=== PATIENT | female | born 1960 | race Caucasian/White ===

== ENCOUNTER 2024-02-16 09:56 | Outpatient (CLI) | payer MEDICAID ==
[~2024-02-16 09:56] MED LIST: VENTOLIN HFA 90 MCG INH
== END 2024-02-16 23:59 | disposition home or self-care (01) ==
LOC: CARD DIAG 09:56
PROVIDERS: ATTEND Internal Medicine
DX: I08.8 Other rheumatic multiple valve diseases (principal); M79.89 Other specified soft tissue disorders
CPT/HCPCS: 93306

== ENCOUNTER 2024-06-13 03:38 | Inpatient (IN) | payer MEDICAID ==
[~2024-06-13] VITALS: Ht 154.9 cm; Wt 54.5 kg
[2024-06-13] MEDS: normal saline 1000ML IV soln IVB ONE (04:15)
[2024-06-13] MEDS: insulin regular, human 10 units/0.1 ml syringe IV ONE (04:16)
[2024-06-13 04:26] LABS: BASOPHILS # (AUTO) 0.1 X10'3 (0-0.2); BASOPHILS % (AUTO) 0.6 % (0-1); EOSINOPHILS % (AUTO) 0.3 % (0-6); HEMATOCRIT 30.9 % (35.0-45.0); HEMOGLOBIN 10.4 g/dl (12.0-16.0); LYMPHOCYTES # (AUTO) 0.9 X10'3 (1.1-4.8); LYMPHOCYTES % (AUTO) 9.1 % (21-51); MEAN CORPUSCULAR HEMOGLOBIN 36.5 PG (27.0-31.0); MEAN CORPUSCULAR HGB CONC 33.6 g/dL (33.0-36.5); MEAN CORPUSCULAR VOLUME 108.5 FL (78-98); MEAN PLATELET VOLUME 8.9 FL (7.4-10.4); MONOCYTES # (AUTO) 1.2 X10'3 (0-0.9); MONOCYTES % (AUTO) 12.4 % (2-12); NEUTROPHILS # (AUTO) 7.3 X10'3 (1.8-7.7); NEUTROPHILS % (AUTO) 77.6 % (42-75); PLATELET COUNT 229 X10'3 (140-440); RED BLOOD COUNT 2.85 X10'6 (4.20-5.60); RED CELL DISTRIBUTION WIDTH 18.9 % (11.5-14.5); WHITE BLOOD COUNT 9.5 X10'3 (4.5-11.0)
[2024-06-13 04:36] LABS: ALANINE AMINOTRANSFERASE 57 U/L (12-78); ALBUMIN 3.4 G/DL (3.4-5.0); ALBUMIN/GLOBULIN RATIO 1.2 (1.1-1.5); ALKALINE PHOSPHATASE 281 IU/L (46-116); ANION GAP 13 (8-16); ASPARTATE AMINO TRANSFERASE 60 U/L (10-37); BLOOD UREA NITROGEN 25 MG/DL (7-18); BUN/CREATININE RATIO 15.1 (10.0-20.0); CALCIUM 8.2 MG/DL (8.5-10.1); CHLORIDE 98 MMOL/L (99-107); CREATININE 1.66 MG/DL (0.40-0.90); SODIUM 130 MMOL/L (135-145); TOTAL CARBON DIOXIDE 19.2 MMOL/L (24-32); TOTAL PROTEIN 6.2 G/DL (6.4-8.2); eCRCL 27 ML/MIN; eGFR 31 ML/MIN
[2024-06-13 04:42] LABS: GLUCOSE 578 MG/DL (70-104); POTASSIUM 2.9 MMOL/L (3.5-5.1)
[2024-06-13] MEDS ORDERED: potassium Cl 20 mEq SR tablet PO SCH (04:50)
[2024-06-13 04:59] LABS: ANISOCYTOSIS 2+; PLATELET ESTIMATE NORMAL; POLYCHROMASIA FEW; STOMATOCYTES 2+
[2024-06-13] MEDS: potassium Cl 20 mEq SR tablet PO ONE (05:09)
[2024-06-13] MEDS: magnesium sulf-water 2g/50mL 50 ML IV ONE (05:09)
[2024-06-13 05:13] LABS: ABG BASE EXCESS -9.1 mmol/L (-2.0-3.0); ABG HCO3 15.8 mmol/L (21.0-28.0); ABG OXYGEN SATURATION 96.2 % (94.0-98.0); ABG PH (T) 7.337 (7.350-7.450); ABG PO2 (T) 86.7 mmHg (83.0-108.0); ALLEN'S TEST Modified; FCOHb 0.6 % (0.5-1.5); FHHb 3.8 % (0.0-5.0); FMetHb 0.1 % (0.0-1.5); FO2Hb 95.5 % (94.0-98.0); PATIENT TEMPERATURE 36.4; TOTAL HEMOGLOBIN 10.6 G/dl (12.0-16.0)
[2024-06-13] MEDS ORDERED: ondansetron/PF 4mg/2ml inj IV PRN (05:40)
[2024-06-13] MEDS ORDERED: magnesium sulf-water 2g/50mL 50 ML IV PRN (05:40)
[2024-06-13] MEDS ORDERED: potassium Cl 20 mEq SR tablet PO PRN (05:40)
[2024-06-13] MEDS ORDERED: mag hydrox/Alum hydrox/simeth 30ml oral suspension PO PRN (05:40)
[2024-06-13] MEDS ORDERED: magnesium hydroxide 30ml (MOM) UD suspension PO PRN (05:40)
[2024-06-13] MEDS ORDERED: magnesium sulf-water 4G/100mL 100 ML IV PRN (05:40)
[2024-06-13] MEDS ORDERED: acetaminophen 325mg tablet PO PRN (05:40)
[2024-06-13] MEDS ORDERED: potassium Cl 40MEQ/1/2NS 520ml 520 ML IV PRN (05:40)
[2024-06-13 06:03] LABS: BILIRUBIN,URINE NEGATIVE (Neg); CLARITY,URINE SLIGHTLY CLOUDY (Clear); COLOR,URINE YELLOW (Yellow); GLUCOSE, URINE >=1000 mg/dl (Neg); KETONES,URINE NEGATIVE (Neg); LEUKOCYTE ESTERASE ,URINE NEGATIVE (Neg); OCCULT BLOOD,URINE SMALL (Neg); PROTEIN,URINE NEGATIVE (Neg); UROBILINOGEN,URINE 0.2 E.U/dL (0.2-1.0)
[2024-06-13 06:11] LABS: NITRITES, URINE NEGATIVE (Neg); UA COLLECTION TYPE CLN CATCH MIDSTREAM
[2024-06-13] MEDS: normal saline 1000ml 1,000 ML IV SCH (06:11)
[2024-06-13 06:12] LABS: SQUAMOUS EPITHELIAL CELL,UR MANY /LPF (FEW)
[2024-06-13 06:13] LABS: BACTERIA,URINE FEW /HPF (Neg); TRANSITIONAL EPI CELLS,URINE FEW /HPF; WBC,URINE 0-4 /HPF (0-4)
[2024-06-13] MEDS ORDERED: LORazepam 2 mg/ml vial IV PRN (06:20)
[2024-06-13 06:33] LABS: URINE AMPHETAMINE SCREEN POSITIVE (Neg); URINE BARBITUATE SCREEN NEGATIVE (Neg); URINE BENZODIAZEPINES SCREEN NEGATIVE (Neg); URINE CANNABINOID SCREEN POSITIVE (Neg); URINE COCAINE SCREEN NEGATIVE (Neg); URINE METHADONE SCREEN NEGATIVE (Neg); URINE OPIATE SCREEN NEGATIVE (Neg); URINE PHENCYCLIDINE SCREEN NEGATIVE (Neg)
[2024-06-13] MEDS: thiamine 100mg/ml 2ml inj. IV SCH (07:40)
[2024-06-13] MEDS: docusate sod 100mg capsule PO SCH (07:40)
[2024-06-13] MEDS: folic acid 1mg/0.2ml inj IV SCH (07:40)
[2024-06-13] MEDS: multivitamins, therapeutics tablet PO SCH (07:41)
[2024-06-13] MEDS: heparin, porcine 5000 units/ml vial SQ SCH (07:42)
[2024-06-13 07:54] LABS: MAGNESIUM 2.5 MG/DL (1.5-2.4); THYROID STIMULATING HORMONE 1.85 ulU/ml (0.34-4.50)
[2024-06-13 08:02] LABS: ETHANOL < 10 MG/DL (<10)
[2024-06-13 08:03] LABS: POTASSIUM 2.9 MMOL/L (3.5-5.1)
[2024-06-13] MEDS: K and/or MAG REPLACEMENT MC SCH (08:09)
[2024-06-13] MEDS: potassium Cl 20 mEq SR tablet PO PRN (08:09)
[2024-06-13 08:25] LABS: HEMOGLOBIN A1C 11.2 % (4.5-6.2)
[2024-06-13] MEDS ORDERED: glucagon, human recombinant 1mg kit SUBCUT PRN (08:55)
[2024-06-13] MEDS ORDERED: dextrose 50%-water 50ml dispensing syringe IV PRN (08:55)
[2024-06-13] MEDS ORDERED: DEXTROSE 15 GM of carb/4 tabs (each vial/BOTTLE has 4 tablets) PO PRN ×2 (08:55)
[2024-06-13] MEDS: INSULIN LISPRO 100 UNIT/ML INSULN.PEN MULTI-DOSE SQ SCH ×2 (09:00→12:27)
[2024-06-13] MEDS: Potassium Cl inj 20 MEQ in normal saline 1000ml 990 ML IV SCH (09:27)
[2024-06-13 11:28] LABS: ALBUMIN 2.5 G/DL (3.4-5.0); ANION GAP 13 (8-16); BLOOD UREA NITROGEN 20 MG/DL (7-18); BUN/CREATININE RATIO 21.3 (10.0-20.0); CALCIUM 7.6 MG/DL (8.5-10.1); CHLORIDE 109 MMOL/L (99-107); CREATININE 0.94 MG/DL (0.40-0.90); GLUCOSE 195 MG/DL (70-104); POTASSIUM 3.7 MMOL/L (3.5-5.1); SODIUM 137 MMOL/L (135-145); TOTAL CARBON DIOXIDE 15.2 MMOL/L (24-32); eCRCL 47 ML/MIN; eGFR 61 ML/MIN
[2024-06-13 14:15] VITALS: BP 111/53; PULSE 66; RESP 14; TEMP 98; O2SAT 98
[2024-06-13 16:00] VITALS: RESP 18
[2024-06-13 16:34] LABS: ALBUMIN 2.6 G/DL (3.4-5.0); ANION GAP 8 (8-16); BLOOD UREA NITROGEN 19 MG/DL (7-18); BUN/CREATININE RATIO 12.6 (10.0-20.0); CALCIUM 7.6 MG/DL (8.5-10.1); CHLORIDE 108 MMOL/L (99-107); CREATININE 1.51 MG/DL (0.40-0.90); GLUCOSE 324 MG/DL (70-104); POTASSIUM 3.9 MMOL/L (3.5-5.1); SODIUM 135 MMOL/L (135-145); TOTAL CARBON DIOXIDE 19.1 MMOL/L (24-32); eCRCL 30 ML/MIN; eGFR 35 ML/MIN
[2024-06-13] MEDS ORDERED: IBUP-1985 PO (17:30)
[2024-06-13] MEDS ORDERED: GABA-530 PO (17:31)
[2024-06-13 18:00] VITALS: BP 98/56; PULSE 67; RESP 16; TEMP 98.3; O2SAT 96
[2024-06-13] MEDS: FLU VACC TS2024-25(6MOS UP)/PF 45 MCG/0.5 ML SYRINGE IMVAC ONE (19:25)
[2024-06-13] MEDS: pneumococcal 23-VAL P-sac vacc 25 mcg/0.5ml vial IMVAC ONE (19:29)
[2024-06-13 20:00] VITALS: RESP 18; O2SAT 98
[2024-06-13 22:00] VITALS: BP 107/55; PULSE 63; RESP 18; TEMP 97.9; O2SAT 98
[2024-06-13] MEDS: insulin glargine (Lantus) pen - multi-dose SQ SCH (22:40)
[2024-06-14 06:00] VITALS: BP 123/66; PULSE 73; RESP 14; TEMP 98.2; O2SAT 100
[2024-06-14 06:10] LABS: HEMOGLOBIN 11.1 g/dl (12.0-16.0); MEAN PLATELET VOLUME 9.1 FL (7.4-10.4); WHITE BLOOD COUNT 8.1 X10'3 (4.5-11.0)
[2024-06-14 06:13] LABS: BASOPHILS % (AUTO) 0.4 % (0-1); EOSINOPHILS % (AUTO) 0.5 % (0-6); HEMATOCRIT 33.8 % (35.0-45.0); LYMPHOCYTES % (AUTO) 12.1 % (21-51); MEAN CORPUSCULAR HEMOGLOBIN 36.3 PG (27.0-31.0); MEAN CORPUSCULAR HGB CONC 32.8 g/dL (33.0-36.5); MEAN CORPUSCULAR VOLUME 110.5 FL (78-98); MONOCYTES % (AUTO) 12.3 % (2-12); NEUTROPHILS % (AUTO) 74.7 % (42-75); PLATELET COUNT 244 X10'3 (140-440); RED BLOOD COUNT 3.05 X10'6 (4.20-5.60)
[2024-06-14 06:32] LABS: ALANINE AMINOTRANSFERASE 48 U/L (12-78); ALBUMIN 2.6 G/DL (3.4-5.0); ALKALINE PHOSPHATASE 229 IU/L (46-116); ANION GAP 12 (8-16); ASPARTATE AMINO TRANSFERASE 49 U/L (10-37); BILIRUBIN,TOTAL 1.4 MG/DL (0.1-1.0); BLOOD UREA NITROGEN 16 MG/DL (7-18); BUN/CREATININE RATIO 14.8 (10.0-20.0); CALCIUM 7.4 MG/DL (8.5-10.1); CHLORIDE 106 MMOL/L (99-107); CHOL/HDL RATIO 2.4 (0.00-4.99); CHOLESTEROL 157 MG/DL (0-200); CREATININE 1.08 MG/DL (0.40-0.90); HDL CHOLESTEROL 66 MG/DL (35-60); LDL CHOLESTEROL 66 MG/DL (50-100); LIPASE 18 U/L (16-77); MAGNESIUM 1.6 MG/DL (1.5-2.4); POTASSIUM 3.8 MMOL/L (3.5-5.1); SODIUM 133 MMOL/L (135-145); TOTAL CARBON DIOXIDE 15.3 MMOL/L (24-32); TOTAL PROTEIN 5.2 G/DL (6.4-8.2); TRIGLYCERIDES 100 MG/DL (20-135); eCRCL 41 ML/MIN; eGFR 52 ML/MIN
[2024-06-14 06:37] LABS: ANISOCYTOSIS 2+; PLATELET ESTIMATE NORMAL; TOTAL CELLS COUNTED 100
[2024-06-14 06:38] LABS: GLUCOSE 405 MG/DL (70-104); POLYCHROMASIA FEW; STOMATOCYTES 2+; TEAR DROP CELLS FEW
[2024-06-14 08:00] VITALS: RESP 14; O2SAT 100
[2024-06-14] MEDS: insulin Lispro (HumaLOG) vial - multi-dose SQ ONE (08:26)
[2024-06-14] MEDS: INSULIN LISPRO 100 UNIT/ML INSULN.PEN MULTI-DOSE SQ SCH ×2 (08:34→15:03)
[2024-06-14 12:00] VITALS: BP 114/89; PULSE 72; RESP 18; TEMP 98; O2SAT 99
[2024-06-14] MEDS: potassium Cl 20mEq in NS 1,000 ML IV SCH (15:33)
[2024-06-14 18:00] VITALS: BP 162/75; PULSE 76; RESP 18; TEMP 97.7; O2SAT 99
[2024-06-14] MEDS: calcium gluconate inj. 3 GM in normal saline 100ml IV soln 70 ML IV ONE (20:41)
[2024-06-14] MEDS: insulin glargine (Lantus) pen - multi-dose SQ SCH (20:58)
[2024-06-14] MEDS ORDERED: insulin glargine (Lantus) pen - multi-dose SQ SCH (21:00)
[2024-06-14 22:00] VITALS: BP 113/60; PULSE 67; RESP 14; TEMP 97.9; O2SAT 100
[2024-06-15] VITALS (7 sets, daily range): BP systolic 117–152; BP diastolic 62–73; PULSE 70–78; RESP 13–18; TEMP 97.5–98.6; O2SAT 95–100
[2024-06-15 06:04] LABS: BASOPHILS % (AUTO) 0.3 % (0-1); EOSINOPHILS % (AUTO) 0.4 % (0-6); HEMOGLOBIN 11.7 g/dl (12.0-16.0); LYMPHOCYTES # (AUTO) 1.1 X10'3 (1.1-4.8); LYMPHOCYTES % (AUTO) 15.1 % (21-51); MEAN CORPUSCULAR HEMOGLOBIN 36.3 PG (27.0-31.0); MEAN CORPUSCULAR HGB CONC 32.4 g/dL (33.0-36.5); MEAN CORPUSCULAR VOLUME 112.2 FL (78-98); MEAN PLATELET VOLUME 8.7 FL (7.4-10.4); MONOCYTES # (AUTO) 1.1 X10'3 (0-0.9); MONOCYTES % (AUTO) 14.9 % (2-12); NEUTROPHILS # (AUTO) 5.1 X10'3 (1.8-7.7); NEUTROPHILS % (AUTO) 69.3 % (42-75); PLATELET COUNT 260 X10'3 (140-440); RED BLOOD COUNT 3.21 X10'6 (4.20-5.60); RED CELL DISTRIBUTION WIDTH 19.8 % (11.5-14.5); WHITE BLOOD COUNT 7.4 X10'3 (4.5-11.0)
[2024-06-15 06:26] LABS: ALANINE AMINOTRANSFERASE 43 U/L (12-78); ALBUMIN 2.6 G/DL (3.4-5.0); ALBUMIN/GLOBULIN RATIO 0.8 (1.1-1.5); ALKALINE PHOSPHATASE 211 IU/L (46-116); ANION GAP 12 (8-16); ASPARTATE AMINO TRANSFERASE 36 U/L (10-37); BLOOD UREA NITROGEN 12 MG/DL (7-18); BUN/CREATININE RATIO 15.8 (10.0-20.0); CHLORIDE 106 MMOL/L (99-107); CREATININE 0.76 MG/DL (0.40-0.90); LIPASE 25 U/L (16-77); MAGNESIUM 1.4 MG/DL (1.5-2.4); POTASSIUM 3.2 MMOL/L (3.5-5.1); SODIUM 135 MMOL/L (135-145); TOTAL CARBON DIOXIDE 17.5 MMOL/L (24-32); TOTAL PROTEIN 5.7 G/DL (6.4-8.2); eCRCL 59 ML/MIN; eGFR 77 ML/MIN
[2024-06-15 06:30] LABS: GLUCOSE 421 MG/DL (70-104)
[2024-06-15 07:30] LABS: PLATELET ESTIMATE NORMAL
[2024-06-15 07:32] LABS: POLYCHROMASIA 1+
[2024-06-15 07:33] LABS: ANISOCYTOSIS 2+
[2024-06-15] MEDS: INSULIN LISPRO 100 UNIT/ML INSULN.PEN MULTI-DOSE SQ SCH ×2 (08:20→13:17)
[2024-06-15] MEDS: insulin glargine (Lantus) pen - multi-dose SQ SCH (08:20)
[2024-06-15] MEDS: magnesium Cl slow-release 64mg tablet PO PRN (08:24)
[2024-06-15] MEDS: mupirocin 2% ointment 22GM TP SCH ×2 (08:25→21:09)
[2024-06-15] MEDS: INSULIN LISPRO 100 UNIT/ML INSULN.PEN MULTI-DOSE SQ ONE (15:30)
[2024-06-16 06:00] VITALS: BP 124/73; PULSE 74; RESP 16; TEMP 99; O2SAT 98
[2024-06-16 06:05] LABS: WHITE BLOOD COUNT 9.9 X10'3 (4.5-11.0)
[2024-06-16 06:09] LABS: BASOPHILS % (AUTO) 0.4 % (0-1); EOSINOPHILS % (AUTO) 0.4 % (0-6); HEMATOCRIT 33.3 % (35.0-45.0); HEMOGLOBIN 11.2 g/dl (12.0-16.0); LYMPHOCYTES # (AUTO) 1.4 X10'3 (1.1-4.8); LYMPHOCYTES % (AUTO) 13.9 % (21-51); MEAN CORPUSCULAR HEMOGLOBIN 36.6 PG (27.0-31.0); MEAN CORPUSCULAR HGB CONC 33.5 g/dL (33.0-36.5); MEAN PLATELET VOLUME 9.2 FL (7.4-10.4); MONOCYTES # (AUTO) 1.4 X10'3 (0-0.9); MONOCYTES % (AUTO) 14.1 % (2-12); NEUTROPHILS # (AUTO) 7.1 X10'3 (1.8-7.7); NEUTROPHILS % (AUTO) 71.2 % (42-75); PLATELET COUNT 313 X10'3 (140-440); RED BLOOD COUNT 3.06 X10'6 (4.20-5.60); RED CELL DISTRIBUTION WIDTH 19.7 % (11.5-14.5)
[2024-06-16 06:33] LABS: ALANINE AMINOTRANSFERASE 38 U/L (12-78); ALBUMIN 2.5 G/DL (3.4-5.0); ALBUMIN/GLOBULIN RATIO 0.8 (1.1-1.5); ALKALINE PHOSPHATASE 166 IU/L (46-116); ANION GAP 5 (8-16); ASPARTATE AMINO TRANSFERASE 31 U/L (10-37); BILIRUBIN,TOTAL 0.8 MG/DL (0.1-1.0); BLOOD UREA NITROGEN 10 MG/DL (7-18); BUN/CREATININE RATIO 17.5 (10.0-20.0); CALCIUM 7.5 MG/DL (8.5-10.1); CHLORIDE 109 MMOL/L (99-107); CREATININE 0.57 MG/DL (0.40-0.90); GLUCOSE 60 MG/DL (70-104); LIPASE 16 U/L (16-77); MAGNESIUM 1.4 MG/DL (1.5-2.4); SODIUM 137 MMOL/L (135-145); TOTAL CARBON DIOXIDE 23.3 MMOL/L (24-32); TOTAL PROTEIN 5.6 G/DL (6.4-8.2); eCRCL 78 ML/MIN; eGFR > 90 ML/MIN
[2024-06-16 06:39] LABS: POTASSIUM 2.9 MMOL/L (3.5-5.1)
[2024-06-16] MEDS ORDERED: magnesium sulf-water 2g/50mL 50 ML IV PRN (07:30)
[2024-06-16] MEDS ORDERED: potassium Cl 20 mEq SR tablet PO PRN (07:30)
[2024-06-16] MEDS ORDERED: potassium Cl 40MEQ/1/2NS 520ml 520 ML IV PRN (07:30)
[2024-06-16] MEDS: K and/or MAG REPLACEMENT MC SCH (08:00)
[2024-06-16] MEDS: potassium Cl 20 mEq SR tablet PO PRN (09:16)
[2024-06-16] MEDS: thiamine 100mg tablet PO SCH (09:16)
[2024-06-16] MEDS: INSULIN LISPRO 100 UNIT/ML INSULN.PEN MULTI-DOSE SQ SCH ×2 (09:25→20:18)
[2024-06-16] MEDS: dextrose 50%-water 50ml dispensing syringe IV PRN (12:56)
[2024-06-16] MEDS: DOXYCYCLINE 100MG CAPSULE PO SCH (17:31)
[2024-06-16] MEDS: magnesium sulf-water 4G/100mL 100 ML IV PRN (17:50)
[2024-06-16 18:00] VITALS: BP 128/69; PULSE 66; RESP 16; TEMP 98.4; O2SAT 99
[2024-06-16] MEDS: insulin glargine (Lantus) pen - multi-dose SQ SCH (21:00)
[2024-06-16 22:00] VITALS: BP 120/59; PULSE 75; RESP 16; TEMP 97.4; O2SAT 100
[2024-06-17 06:00] VITALS: BP 130/68; PULSE 69; RESP 16; TEMP 98.2; O2SAT 94
[2024-06-17 06:59] LABS: BASOPHILS # (AUTO) 0.1 X10'3 (0-0.2); BASOPHILS % (AUTO) 0.5 % (0-1); EOSINOPHILS % (AUTO) 0.4 % (0-6); HEMATOCRIT 34.8 % (35.0-45.0); HEMOGLOBIN 11.4 g/dl (12.0-16.0); LYMPHOCYTES # (AUTO) 1.7 X10'3 (1.1-4.8); MEAN CORPUSCULAR HGB CONC 32.8 g/dL (33.0-36.5); MEAN CORPUSCULAR VOLUME 109.6 FL (78-98); MONOCYTES # (AUTO) 1.4 X10'3 (0-0.9); MONOCYTES % (AUTO) 13.4 % (2-12); NEUTROPHILS # (AUTO) 7.4 X10'3 (1.8-7.7); NEUTROPHILS % (AUTO) 69.7 % (42-75); PLATELET COUNT 337 X10'3 (140-440); RED BLOOD COUNT 3.17 X10'6 (4.20-5.60); RED CELL DISTRIBUTION WIDTH 19.6 % (11.5-14.5); WHITE BLOOD COUNT 10.7 X10'3 (4.5-11.0)
[2024-06-17 07:12] LABS: ALANINE AMINOTRANSFERASE 41 U/L (12-78); ALBUMIN 2.3 G/DL (3.4-5.0); ALBUMIN/GLOBULIN RATIO 0.6 (1.1-1.5); ALKALINE PHOSPHATASE 186 IU/L (46-116); ANION GAP 6 (8-16); ASPARTATE AMINO TRANSFERASE 39 U/L (10-37); BILIRUBIN,TOTAL 0.6 MG/DL (0.1-1.0); BLOOD UREA NITROGEN 10 MG/DL (7-18); BUN/CREATININE RATIO 15.4 (10.0-20.0); CALCIUM 7.2 MG/DL (8.5-10.1); CHLORIDE 104 MMOL/L (99-107); CREATININE 0.65 MG/DL (0.40-0.90); GLUCOSE 287 MG/DL (70-104); LIPASE 26 U/L (16-77); MAGNESIUM 2.1 MG/DL (1.5-2.4); POTASSIUM 4.6 MMOL/L (3.5-5.1); SODIUM 130 MMOL/L (135-145); TOTAL CARBON DIOXIDE 20.3 MMOL/L (24-32); TOTAL PROTEIN 5.9 G/DL (6.4-8.2); eCRCL 69 ML/MIN; eGFR > 90 ML/MIN
[2024-06-17] MEDS: folic acid 1mg tablet PO SCH (08:45)
[2024-06-17 10:00] VITALS: BP 107/52; PULSE 66; RESP 18; TEMP 98.2; O2SAT 99
[2024-06-17 10:22] LABS: ANISOCYTOSIS 2+; PLATELET ESTIMATE NORMAL; POLYCHROMASIA 1+
[2024-06-17 10:23] LABS: BURR CELLS FEW
[2024-06-17] MEDS ORDERED: FOLI1TAB27 PO (13:13)
[2024-06-17] MEDS ORDERED: SITA50TA PO (13:13)
[2024-06-17] MEDS ORDERED: thiamine tablet PO (13:13)
[2024-06-17] MEDS ORDERED: METF-1203 PO (13:13)
== END 2024-06-17 14:55 | disposition home or self-care (01) | DRG 420 ==
LOC: ER 03:39 → ED HOLD 05:49 → EDBEDREQ 11:51 → ORTHO 4S 14:12
PROVIDERS: ADMIT Internal Medicine Sleep Medicine; ATTEND Family Medicine
DX: E11.00 Type 2 diabetes mellitus with hyperosmolarity without nonketotic hyperglycemic-hyperosmolar coma (NKHHC) (principal); N17.0 Acute kidney failure with tubular necrosis; E83.51 Hypocalcemia; E87.1 Hypo-osmolality and hyponatremia; D53.9 Nutritional anemia, unspecified; S50.812A Abrasion of left forearm, initial encounter; E87.6 Hypokalemia; E86.0 Dehydration; F15.10 Other stimulant abuse, uncomplicated; G89.29 Other chronic pain; M54.9 Dorsalgia, unspecified; F19.10 Other psychoactive substance abuse, uncomplicated; X58.XXXA Exposure to other specified factors, initial encounter; Y93.89 Activity, other specified; Y92.89 Other specified places as the place of occurrence of the external cause; Y99.8 Other external cause status
CPT/HCPCS: 36415; 36600; 80048; 80053; 80061; 80305; 80320; 81001; 82607; 82803; 82948; 83036; 83690; 83735; 84132; 84443; 85007; 85008; 85018; 85025; 87081; 90686; 90732; 93005; 96365; 96375; 97110; 97116; 97161; 99285; A6250; A6449; G0378; J0610; J1644; J1815; J3411; J3475; J3480; J3490; J7030

== ENCOUNTER 2024-12-23 17:56 | Emergency (ER) | payer MEDICAID ==
[~2024-12-23] VITALS: Ht 154.9 cm; Wt 47.1 kg
[~2024-12-23 17:56] MED LIST changes: +FOLI1TAB27 PO; +GABA-530 PO; +SITA50TA PO; +thiamine tablet PO
[2024-12-23 17:57] VITALS: BP 154/79; PULSE 103; RESP 16; TEMP 98.2; O2SAT 96
[2024-12-23 18:53] LABS: BASOPHILS % (AUTO) 0.5 % (0-1); EOSINOPHILS % (AUTO) 0.3 % (0-6); HEMOGLOBIN 11.9 g/dl (12.0-16.0); LYMPHOCYTES # (AUTO) 0.8 X10'3 (1.1-4.8); LYMPHOCYTES % (AUTO) 8.7 % (21-51); MEAN CORPUSCULAR HEMOGLOBIN 33.4 PG (27.0-31.0); MEAN CORPUSCULAR HGB CONC 31.4 g/dL (33.0-36.5); MEAN CORPUSCULAR VOLUME 106.3 FL (78-98); MONOCYTES % (AUTO) 10.9 % (2-12); NEUTROPHILS % (AUTO) 79.6 % (42-75); PLATELET COUNT 316 X10'3 (140-440); RED BLOOD COUNT 3.58 X10'6 (4.20-5.60); RED CELL DISTRIBUTION WIDTH 17.2 % (11.5-14.5); WHITE BLOOD COUNT 8.8 X10'3 (4.5-11.0)
[2024-12-23 19:16] LABS: ALANINE AMINOTRANSFERASE 34 U/L (12-78); ALBUMIN 2.8 G/DL (3.4-5.0); ALBUMIN/GLOBULIN RATIO 0.8 (1.1-1.5); ALKALINE PHOSPHATASE 152 IU/L (46-116); ANION GAP 10 (8-16); ASPARTATE AMINO TRANSFERASE 16 U/L (10-37); BILIRUBIN,TOTAL 0.3 MG/DL (0.1-1.0); BLOOD UREA NITROGEN 8 MG/DL (7-18); BUN/CREATININE RATIO 8.2 (10.0-20.0); CHLORIDE 94 MMOL/L (99-107); CREATININE 0.97 MG/DL (0.40-0.90); ETHANOL 47 MG/DL (<10); MAGNESIUM 1.7 MG/DL (1.5-2.4); POTASSIUM 3.9 MMOL/L (3.5-5.1); SODIUM 126 MMOL/L (135-145); TOTAL CARBON DIOXIDE 22.1 MMOL/L (24-32); TOTAL PROTEIN 6.4 G/DL (6.4-8.2); eCRCL 45 ML/MIN; eGFR 58 ML/MIN
[2024-12-23 19:21] LABS: GLUCOSE 874 MG/DL (70-104)
[2024-12-23 19:57] LABS: ANISOCYTOSIS 1+; PLATELET ESTIMATE NORMAL; TOTAL CELLS COUNTED 100
== END 2024-12-23 19:22 | disposition left against medical advice (07) ==
LOC: ER 17:56
DX: L03.211 Cellulitis of face (principal); L02.01 Cutaneous abscess of face; G89.29 Other chronic pain; M54.9 Dorsalgia, unspecified; Z79.899 Other long term (current) drug therapy
CPT/HCPCS: 36415; 80053; 80320; 82948; 83605; 83735; 85007; 85025; 87040; 99283

== ENCOUNTER 2024-12-23 20:13 | Emergency (ER) | payer MEDICAID ==
[~2024-12-23] VITALS: Ht 156.2 cm; Wt 45.0 kg
[2024-12-23] MEDS ORDERED: iohexol 300mg/ml 100ml inj. ONE (20:56)
[2024-12-23] MEDS: piperacillin/tazo 3.375gm/50ml 50 ML IV ONE (21:10)
[2024-12-23] MEDS: normal saline 1000ML IV soln IVB PRN (21:10)
[2024-12-23 21:26] LABS: MEAN PLATELET VOLUME 9.2 FL (7.4-10.4); MONOCYTES # (AUTO) 0.9 X10'3 (0-0.9); NEUTROPHILS # (AUTO) 6.3 X10'3 (1.8-7.7)
[2024-12-23 21:28] LABS: BASOPHILS % (AUTO) 0.3 % (0-1); EOSINOPHILS % (AUTO) 0.4 % (0-6); HEMATOCRIT 42.3 % (35.0-45.0); HEMOGLOBIN 13.2 g/dl (12.0-16.0); LYMPHOCYTES % (AUTO) 12.4 % (21-51); MEAN CORPUSCULAR HEMOGLOBIN 32.8 PG (27.0-31.0); MEAN CORPUSCULAR HGB CONC 31.2 g/dL (33.0-36.5); MEAN CORPUSCULAR VOLUME 105.4 FL (78-98); MONOCYTES % (AUTO) 10.4 % (2-12); NEUTROPHILS % (AUTO) 76.5 % (42-75); PLATELET COUNT 345 X10'3 (140-440); RED BLOOD COUNT 4.01 X10'6 (4.20-5.60); RED CELL DISTRIBUTION WIDTH 16.9 % (11.5-14.5); WHITE BLOOD COUNT 8.2 X10'3 (4.5-11.0)
[2024-12-23 21:37] LABS: APTT 25 SECONDS (22-32); PROTHROMBIN TIME 9.8 SECONDS (9.0-12.0)
[2024-12-23 21:40] LABS: ALANINE AMINOTRANSFERASE 35 U/L (12-78); ALBUMIN 3.3 G/DL (3.4-5.0); ALBUMIN/GLOBULIN RATIO 0.9 (1.1-1.5); ALKALINE PHOSPHATASE 202 IU/L (46-116); ANION GAP 12 (8-16); ASPARTATE AMINO TRANSFERASE 20 U/L (10-37); BILIRUBIN,TOTAL 0.2 MG/DL (0.1-1.0); BLOOD UREA NITROGEN 9 MG/DL (7-18); BUN/CREATININE RATIO 8.7 (10.0-20.0); CALCIUM 8.6 MG/DL (8.5-10.1); CHLORIDE 92 MMOL/L (99-107); CREATININE 1.03 MG/DL (0.40-0.90); POTASSIUM 3.9 MMOL/L (3.5-5.1); SODIUM 127 MMOL/L (135-145); TOTAL CARBON DIOXIDE 22.9 MMOL/L (24-32); TOTAL PROTEIN 7.1 G/DL (6.4-8.2); eCRCL 40 ML/MIN; eGFR 54 ML/MIN
[2024-12-23 21:42] LABS: C-REACTIVE PROTEIN 3.53 MG/DL (0.0-0.5)
[2024-12-23 21:53] LABS: GLUCOSE 845 MG/DL (70-104)
[2024-12-23] MEDS ORDERED: NPH, human insulin isophane inj. SQ SCH (22:40)
[2024-12-24] MEDS: insulin regular, human 10 units/0.1 ml syringe IV ONE (00:14)
[2024-12-24 01:05] LABS: URINE AMPHETAMINE SCREEN NEGATIVE (Neg); URINE BARBITUATE SCREEN NEGATIVE (Neg); URINE BENZODIAZEPINES SCREEN NEGATIVE (Neg); URINE CANNABINOID SCREEN POSITIVE (Neg); URINE COCAINE SCREEN NEGATIVE (Neg); URINE METHADONE SCREEN NEGATIVE (Neg); URINE OPIATE SCREEN NEGATIVE (Neg); URINE PHENCYCLIDINE SCREEN NEGATIVE (Neg)
[2024-12-24] MEDS: ondansetron/PF 4mg/2ml inj IV ONE (03:18)
[2024-12-24] MEDS: morphine 4 MG/ML inj SYRINge IV ONE (03:18)
[2024-12-24 05:44] VITALS: BP 116/65; PULSE 68; RESP 16; TEMP 98.2; O2SAT 98
== END 2024-12-24 05:49 | disposition short-term general hospital (02) ==
LOC: ER 20:14
DX: L03.211 Cellulitis of face (principal); L02.01 Cutaneous abscess of face; L98.8 Other specified disorders of the skin and subcutaneous tissue; G89.29 Other chronic pain; M54.9 Dorsalgia, unspecified; Z79.899 Other long term (current) drug therapy
CPT/HCPCS: 36415; 70487; 80053; 80305; 82948; 84484; 85025; 85610; 85651; 85730; 86140; 96365; 96375; 99291; J1815; J2270; J2405; J2543; J7030; Q9967

== ENCOUNTER 2025-05-11 16:47 | Emergency (ER) | payer MEDICAID ==
[~2025-05-11] VITALS: Ht 154.9 cm; Wt 45.0 kg
--- NOTE | 2025-05-11 17:06 | Physician Documentation ---
History of Present Illness ~ Chief Complaint: ALOC Stated Complaint: HYPERGLYCEMIA/ ETOH Time Seen by MD: 17:01 Primary Medical Doctor: ERICA HAYES HPI This is a 64-year-old female with a history of diabetes, COPD, and alcohol abuse who presents by EMS for intoxication and high blood glucose reading, EMS was called by patient's neighbors for intoxication, patient reports drinking at least half a pt of vodka daily including today, EMS reports patient was found with 1-1/2 empty vodka pt bottles. EMS reports patient has history of frequent calls with high blood glucose readings. Patient reports taking 15 units of lis pro insulin just prior to EMS arrival. Patient reports history of chronic arthritis pain though reports no new symptoms or concerns. Tetanus within 5 years?: Yes Medication Reconciliation Allergies: Coded Allergies: No Known Drug Allergies (Unverified Allergy, Unknown, 12/23/24) potato (Verified Adverse Reaction, Severe, 06/16/24) Scheduled Folic Acid* (Folic Acid*), 1 MG PO DAILY Gabapentin (Gabapentin), 1 CAP PO Q8H, (Reported) Sitagliptin Phosphate (Januvia), 1 TAB PO DAILY [thiamine tablet], 100 MG PO DAILY Scheduled PRN [Ventolin Hfa 90 Mcg], 2 PUFFS INH Q4HPRN PRN for SOB or wheezing, (Reported) Past Medical History Past Medical History: Chronic Pain, Chronic Back Pain Past Surgical History: no surgical history Drug Use: none Lives with: Spouse Lives In: Home Review of Systems ROS As stated above in the HPI, otherwise all systems are reviewed and negative. Physical Exam Vital Signs: Temperature: 97.0, Source: Temporal, Heart Rate: 67, Respiratory Rate: 16, BP: 120/95, Pulse Oximetry: 99, Weight: 45.000 Physical Exam VITALS: Reviewed and as above. GENERAL: Alert, slurred speech, nontoxic appearing, no apparent distress. HEENT: PERRLA EOMI RESPIRATORY: No increased work of breathing, no respiratory distress, speaking in full clear sentences, clear lung sounds in all sa[place] CV: Regular rate and rhythm no murmur GI: Bowel sounds present, nontender to palpation, nondistended Progress Results/Orders Results/Orders Orders - FRANK KENNEY [employer] Accucheck (05/11/25 17:06) Monitor (05/11/25 17:06) Saline Lock (05/11/25 17:06) Completed Orders - FRANK KENNEY [employer] Electrocardiogram (05/11/25 17:06) Cbc/Diff (05/11/25 17:06) Ethanol (05/11/25 17:06) Drug Screen, Urine (05/11/25 17:06) Normal Saline 1000ml (0.9% Sodium Chlori (05/11/25 17:10) * Npo Until Passed Bedside Swa (05/11/25 17:06) Nursing Swallow Screen (05/11/25 17:06) CMP (05/11/25 17:06) Man Diff (05/11/25 17:24) Ua W/Microscopic, Cult If Ind (05/11/25 17:37) Potassium Cl Sr Tablet (K-Dur Tablet) (05/11/25 18:47) Normal Saline 1000ml (0.9% Sodium Chlori (05/11/25 18:50) MG (05/11/25 17:24) Ondansetron Inj. (Zofran 4mg/2ml Vial) (05/11/25 19:15) BMP (05/11/25 21:42) Potassium Cl Sr Tablet (K-Dur Tablet) (05/11/25 23:20) Normal Saline 1000ml (0.9% Sodium Chlori (05/11/25 23:20) Ondansetron Inj. (Zofran 4mg/2ml Vial) (05/11/25 23:20) Insulin Regular, Human (Humulin R 10 Uni (05/11/25 23:20) Thiamine Inj. (Thiamine Inj.) (05/11/25 23:20) Vital Signs 05/11/25 05/11/25 05/11/25 05/11/25 16:53 17:15 18:17 18:28 Temp 97.0 Pulse 67 70 Resp 16 10 15 16 B/P (MAP) 120/95 175/149 (158) Pulse Ox 99 95 05/11/25 05/11/25 05/11/25 05/12/25 19:06 21:06 23:00 00:00 Temp 98.1 Pulse 66 70 71 74 Resp 15 14 16 14 B/P (MAP) 137/110 (119) 132/98 (109) 136/88 (104) 130/90 (103) Pulse Ox 98 99 99 99 05/12/25 05/12/25 01:25 02:41 Temp 98.1 Pulse 73 74 Resp 16 16 B/P (MAP) 134/88 (103) 126/80 Pulse Ox 99 99 Laboratory Tests Test 05/11/25 17:06 05/11/25 17:24 05/11/25 17:37 05/11/25 20:58 Glucometer 520 *H 392 H White Blood Count 6.2 Red Blood Count 4.18 L Hemoglobin 13.7 Hematocrit 40.5 Mean Corpuscular Volume 97.0 Mean Corpuscular Hemoglobin 32.9 H Mean Corpuscular Hemoglobin Concent 33.9 Red Cell Distribution Width 17.0 H Platelet Count 312 Mean Platelet Volume 8.5 Neutrophils (%) (Auto) 63.0 Lymphocytes (%) (Auto) 27.4 Monocytes (%) (Auto) 7.5 Eosinophils (%) (Auto) 0.9 Basophils (%) (Auto) 1.2 H Neutrophils # (Auto) 3.9 Lymphocytes # (Auto) 1.7 Monocytes # (Auto) 0.5 Eosinophils # (Auto) 0.1 Basophils # (Auto) 0.1 CBC Comment Differential Total Cells Counted 100 Neutrophils % (Manual) 65.0 Lymphocytes % (Manual) 24.0 Monocytes % (Manual) 9.0 Eosinophils % (Manual) 2.0 Platelet Estimate Normal Red Blood Cell Morphology Perf Basophilic Stippling Anisocytosis 1+ Macrocytosis 1+ Sodium Level 126 L Potassium Level 3.2 L Chloride Level 94 L Carbon Dioxide Level 19.3 L Anion Gap 13 Blood Urea Nitrogen 26 H Creatinine 0.89 Estimated GFR/1.73 m2 64 BUN/Creatinine Ratio 29.2 H Glucose Level 522 *H Calcium Level 8.2 L Magnesium Level 1.8 Total Bilirubin 0.6 Aspartate Amino Transf (AST/SGOT) 51 H Alanine Aminotransferase (ALT/SGPT) 66 Alkaline Phosphatase 247 H Total Protein 6.2 L Albumin 3.2 L Globulin 3.0 Albumin/Globulin Ratio 1.1 Chemistry Comments Ethyl Alcohol Level 214 H Urine Specimen Description Urinal Urine Color Yellow Urine Clarity Clear Urine pH 6.5 Urine Specific [place] <=1.005 Urine Protein Negative Urine Glucose (UA) >=1000 H Urine Ketones Negative Urine Occult Blood Negative Urine Nitrite Negative Urine Bilirubin Negative Urine Urobilinogen 0.2 Urine Leukocyte Esterase Negative Urine RBC 0-2 Urine WBC 0-4 Urine Squamous Epithelial Cells Few Urine Bacteria Few Urine Culture Indicated Not ind Volume Urine Centrifuged 10 ml Urine Comment Urine Opiates Screen Negative Urine Methadone Screen Negative Urine Fentanyl Screen Negative Urine Barbiturates Screen Negative Urine Phencyclidine Screen Negative Urine Amphetamines Screen Negative Urine Benzodiazepines Screen Negative Urine Cocaine Screen Negative Urine Cannabinoids Screen Negative Drug Screen Comment Test 05/11/25 21:53 05/12/25 01:40 Sodium Level 135 Potassium Level 4.1 Chloride Level 104 Carbon Dioxide Level 21.3 L Anion Gap 10 Blood Urea Nitrogen 24 H Creatinine 0.70 Estimated GFR/1.73 m2 85 BUN/Creatinine Ratio 34.3 H Glucose Level 457 *H Calcium Level 7.8 L Albumin 2.8 L Chemistry Comments Glucometer 267 H EKG/XRAY/CT/US/VASC/MRI EKG : Additional Comment EKG at 1702 interpreted by myself as sinus rhythm at a rate of 68, normal axis, no ST-elevation or depression Medical Decision Making Findings This 64-year-old female was brought in by EMS for alcohol intoxication and high blood glucose readings, patient admitted to drinking large amount of alcohol today along with daily consumption of large amounts of alcohol. Patient's blood glucose was found to be quite elevated without evidence of hyperosmolar syndrome or diabetic ketoacidosis, patient was additionally found to be hypokalemic hyponatremic, and hypochloremic which corrected in the department. Blood work additionally supported patient's report of consumption of the large amount of alcohol as blood alcohol level was significantly elevated. Hyperglycemia began improving emergency department and patient was clinically sober upon discharge able to manage her home insulin. Remainder of physical exam was benign without acute findings. Upon discharge patient was hemodynamically stable. Patient provided home care instructions, follow up instructions, and return to care precautions. Differential Dx:Considerations: Intoxication - ETOH, Intoxication - other drug, Sub. Abuse -continuous, Closed head injury, Confusion, Dehydration, Thiamine deficiency, Other (Hyperosmolar syndrome, diabetic ketoacidosis) Departure Time of Disposition: 01:44 Disposition: 01 HOME / SELF CARE / HOMELESS Impression: Primary Impression: Hyperglycemia Additional Impressions: Hyponatremia Alcoholic intoxication Qualified Codes: F10.920 - Alcohol use, unspecified with intoxication, uncomplicated Hypokalemia Dehydration Condition: Improved Discharge Instructions: Alcohol Intoxication, Hyperglycemia, [id number] Additional Instructions: Please take your insulin as previously prescribed, I recommend discussing alcohol treatment programs with your primary care provider. Please follow up with your primary care provider in the next few days. Please return to the emergency department for any new or worsening concerning symptoms. Referrals: NO PRIMARY CARE PROVIDER (PCP) Education Educated: Patient Educated regarding: diagnosis, treatment, prognosis, need for follow up Signature Scribe Signature: No scribe Attestation: The note accurately reflects work and decisions made by me.GEORGINA Mcdonald 05/15/25 19:11 FRANK KENNEY May 11, 2025 17:06
--- NOTE | 2025-05-11 17:09 | ELECTROCARDIOGRAPH REPORT ---
[facility] Test Date: 2025-05-11 Test Time: 17:02:12 Pat Name: MARITZA BRIONES Department: EMERGENCY ROOM Room: Gender: F [employer]: : 1960 Requested By: FRANK KENNEY Order Number: [id number] Reading MD: Measurements Intervals [place] Rate: 68 P: 83 DE: 168 QRS: 63 QRSD: 85 T: 80 QT: 415 QTc: 442 Interpretive Statements Sinus rhythm Right atrial enlargement Please click the below link to view image of tracing.
[2025-05-11] MEDS: normal saline 1000ML IV soln IVB ONE ×2 (17:40→19:04)
[2025-05-11 17:58] LABS: MEAN PLATELET VOLUME 8.5 FL (7.4-10.4); RED CELL DISTRIBUTION WIDTH 17.0 % (11.5-14.5)
[2025-05-11 18:19] LABS: LEUKOCYTE ESTERASE ,URINE NEGATIVE (Neg); NITRITES, URINE NEGATIVE (Neg); OCCULT BLOOD,URINE NEGATIVE (Neg)
[2025-05-11 18:21] LABS: UA COLLECTION TYPE URINAL
[2025-05-11 18:32] LABS: CREATININE 0.89 MG/DL (0.40-0.90); ETHANOL 214 MG/DL (<10); TOTAL CARBON DIOXIDE 19.3 MMOL/L (24-32); eCRCL 47 ML/MIN; eGFR 64 ML/MIN
[2025-05-11 18:34] LABS: URINE AMPHETAMINE SCREEN NEGATIVE (Neg); URINE BARBITUATE SCREEN NEGATIVE (Neg); URINE BENZODIAZEPINES SCREEN NEGATIVE (Neg); URINE CANNABINOID SCREEN NEGATIVE (Neg); URINE COCAINE SCREEN NEGATIVE (Neg); URINE METHADONE SCREEN NEGATIVE (Neg); URINE OPIATE SCREEN NEGATIVE (Neg); URINE PHENCYCLIDINE SCREEN NEGATIVE (Neg)
[2025-05-11 18:35] LABS: SQUAMOUS EPITHELIAL CELL,UR FEW /LPF (FEW)
[2025-05-11 18:41] LABS: EOSINOPHILS % (MANUAL) 2.0 % (0-6); LYMPHOCYTES % (MANUAL) 24.0 % (21-51); MONOCYTES % (MANUAL) 9.0 % (2-12); NEUTROPHILS % (MANUAL) 65.0 % (42-75); PLATELET ESTIMATE NORMAL
[2025-05-11] MEDS: potassium Cl 20 mEq SR tablet PO STA ×2 (19:04→23:50)
[2025-05-11] MEDS: ondansetron/PF 4mg/2ml inj IV ONE (19:27)
[2025-05-11 22:15] LABS: CREATININE 0.70 MG/DL (0.40-0.90); TOTAL CARBON DIOXIDE 21.3 MMOL/L (24-32); eCRCL 59 ML/MIN; eGFR 85 ML/MIN
[2025-05-11] MEDS: thiamine 100mg/ml 2ml inj. IV ONE (23:42)
[2025-05-11] MEDS: insulin regular, human 10 units/0.1 ml syringe IV ONE (23:48)
[2025-05-12] MEDS: ondansetron/PF 4mg/2ml inj IV ONE (00:04)
[2025-05-12] MEDS: normal saline 1000ML IV soln IVB ONE (01:39)
[2025-05-12 02:41] VITALS: BP 126/80; PULSE 74; RESP 16; TEMP 98.1; O2SAT 99
== END 2025-05-12 02:47 | disposition home or self-care (01) ==
LOC: ER 16:48
DX: F10.129 Alcohol abuse with intoxication, unspecified (principal); E11.65 Type 2 diabetes mellitus with hyperglycemia; E86.0 Dehydration; E87.1 Hypo-osmolality and hyponatremia; E87.6 Hypokalemia; J44.9 Chronic obstructive pulmonary disease, unspecified; Z79.899 Other long term (current) drug therapy; Y90.7 Blood alcohol level of 200-239 mg/100 ml
CPT/HCPCS: 36415; 80048; 80053; 80305; 80320; 81001; 82948; 83735; 85007; 85025; 93005; 96361; 96374; 96375; 99285; J1815; J3411; J7030